=== PATIENT | male | born 1960 | race Caucasian/White ===

== ENCOUNTER 2022-03-20 08:31 | Emergency (ER) | payer MEDICARE ==
[2022-03-20] MEDS ORDERED: Ketorolac Tromethamine 30 MG/ML VIAL ONE (09:08)
[2022-03-20] MEDS ORDERED: HYDROcodone/Acetaminophen 5/325 mg Tablet ONE (09:09)
== END 2022-03-20 09:29 | disposition home or self-care (01) ==
LOC: BURERS 08:31
DX: M54.42 Lumbago with sciatica, left side (principal)
CPT/HCPCS: 36416; 96372; 99283; J1885